=== PATIENT | female | born 1945 | race Caucasian/White ===

== ENCOUNTER 2016-09-15 21:21 | Emergency (ER) | payer OTHER, MEDICARE ==
[~2016-09-15] VITALS: Ht 162.6 cm; Wt 81.8 kg
[~2016-09-15 21:21] MED LIST: AMT25T PO; BUPR150T12 PO; CITA20TA11 PO; CYA1000I IM; GABA-502 PO; KLO5T PO; LEVO200T6 PO; OMEP20TA86 PO; ROPI0.5T PO; TRAZ-115 PO
[2016-09-15 21:27] VITALS: BP 160/95; PULSE 80; RESP 16; O2SAT 98
[2016-09-15 22:52] LABS: BASOPHILS % (AUTO) 0.5 % (0-3); EOSINOPHILS % (AUTO) 2.1 % (0-5); MONOCYTES % (AUTO) 9.1 % (4-12); Mean Corpuscular Hemoglobin 28.8 pg (27.0-35.0); Mean Corpuscular Volume 91.6 fL (81-100); NEUTROPHILS % (AUTO) 49.5 % (40-74); Platelet Count 149 bil/L (150-400)
[2016-09-15 23:15] LABS: TROPONIN T 0.01 ug/L (0.0-0.011)
[2016-09-15 23:26] VITALS: BP 125/59; PULSE 74; RESP 14; O2SAT 98
[2016-09-15 23:26] LABS: Magnesium 1.9 mg/dL (1.6-2.6)
--- NOTE | 2016-09-16 00:51 | ED.REPORT ---
HPI-Chest Pain 40 and Over Date of Service Sep 16, 2016 ED Provider: Chuck Cuello MD Patient is a 71 year old female with a hx of HTN who reports to the ED due to episodes of irregular heart beat for four days. She reports it feels like her heart, "stops a beat," followed by stomach pain, left shoulder pain, and a headache. Symptoms most recently occurred two nights ago and lasted for two hours. There was no sustained tachycardia, only this irregularity occurring as frequently as once every 10 beats. She is not currently experiencing any pain. Nursing Notes Stated Complaint: HEART Chief Complaint: Dysrhythmia/Cardiac Nursing Notes Reviewed: Yes Allergies: Coded Allergies: No Known Allergies (Unverified Allergy, Unknown, 05/13/15) Scheduled Amitriptyline (Amitriptyline) 25 Mg Tab 25 MG PO HS Bupropion ER (Bupropion ER) 150 Mg Tablet.er 150 MG PO BID Citalopram (Citalopram) 20 Mg Tablet 20 MG PO DAILY Cyanocobalamin (Cyanocobalamin Injection) 1,000 Mcg/1 Ml Vial 1,000 MCG IM Monthly Gabapentin (Gabapentin) 300 Mg Capsule 300 MG PO DAILY Levothyroxine (Levothyroxine) 200 Mcg Tablet 200 MCG PO DAILY Omeprazole (Omeprazole) 20 Mg Tablet.dr 20 MG PO DAILY Ropinirole (Requip) 0.5 Mg Tablet 0.5 MG PO HS Scheduled PRN Clonazepam (Clonazepam) 0.5 Mg Tablet 0.5 MG PO QEVENING PRN PRN PRN For Anxiety Trazodone (Trazodone) 50 Mg Tablet 50 MG PO HS PRN PRN PRN General Time Seen by MD: 00:36 Chief Complaint Other (dysrhythmia ) Hx Obtained From: Patient Arrived By: Walk-in Sudden in Onset?: Yes Onset Occurred: 4 days ago Symptom Duration: Since onset Location: : Shoulder left Severity: Current: No pain currently Recent Healthcare: No recent doctor visit, No recent hospitalization Similar Sx Previous: No Past Medical History Past Medical History Anxiety Depression Reports: Hypertension Past Surgical History colon surgery Family History noncontributory Smoking History Never Smoker Social History Drug Use: Denies drug use Other Social History: Local resident Ambulatory Status Independent Review of Systems Review of Systems Note: dysrhythmia Musculoskeletal: Reports: Joint pain (left shoulder) Neurologic: Reports: Headache Complete sys rev & neg: except as marked. Physical Exam Initial Vital Signs Vital Signs (First) Date Time Temp Pulse Resp B/P Pulse Ox O2 Delivery O2 Flow Rate FiO2 09/15/16 21:27 36.4 80 16 160/95 98 Room Air Initial VS: Reviewed, Vital signs abnormal Head / Eyes: Atraumatic, Normocephalic, PERRL ENT: Mucous membranes moist, Conjunctiva normal, No scleral icterus Neck: Supple, Non-tender, Full range of motion Back: No CVA tenderness Lymphatic: No lymphadenopathy Extremities: Vascular intact, Neuro intact, No swelling, No tenderness Skin: Warm, Dry, No cyanosis Neurologic: Alert, Oriented, Nonfocal Psychiatric: Mood/affect normal, Behavior normal, Normal thought content General/Constitutional: Awake, Alert, No acute distress, Well appearing, Well developed, Well hydrated, Well nourished, Cooperative, Not toxic appearing Respiratory / Chest: Atraumatic, Breath sounds NL, Breath sounds = bilat, No respiratory distress, No rales, No rhonchi, No wheezing, No retractions Cardiovascular: Heart rate NL, Heart sounds NL, No gallop, No murmurs, No rubs occasional premature beat no edema Abdomen: Atraumatic, Soft, Non-tender, No guarding, No rebound, BS normoactive Interpretation & Diagnostics Lab Results Interpretation Result Diagram: 09/15/16221909/15/162219 Test 09/15/16 22:20 09/16/16 00:37 White Blood Count 5.7th/mm3 (3.8-10.1) Red Blood Count 3.79mil/mm3 (3.90-5.20) Hemoglobin 10.9g/dL (12.0-15.6) Hematocrit 34.7% (35.0-46.0) Mean Corpuscular Volume 91.6fL (81-100) Mean Corpuscular Hemoglobin 28.8pg (27.0-35.0) Mean Corpuscular Hemoglobin Concent 31.4% (32.0-37.0) Red Cell Distribution Width 12.6% (12.3-15.4) Platelet Count 149bil/L (150-400) Neutrophils (%) (Auto) 49.5% (40-74) Lymphocytes (%) (Auto) 38.6% (14-46) Monocytes (%) (Auto) 9.1% (4-12) Eosinophils (%) (Auto) 2.1% (0-5) Basophils (%) (Auto) 0.5% (0-3) Sodium Level 136mEq/L (134-144) Potassium Level 3.8mEq/L (3.5-5.2) Chloride Level 97mEq/L (97-108) Carbon Dioxide Level 26mmol/L (18-29) Blood Urea Nitrogen 25mg/dL (8-27) Creatinine 1.15mg/dL (0.57-1.00) Estimat Glomerular Filtration Rate 67mL/min (>59) Glucose Level 99mg/dL (60-99) Calcium Level 8.7mg/dL (8.5-10.1) Magnesium Level 1.9mg/dL (1.6-2.6) Total Bilirubin 0.3mg/dL (0.0-1.2) Aspartate Amino Transf (AST/SGOT) 26U/L (0-50) Alanine Aminotransferase (ALT/SGPT) 20U/L (0-32) Alkaline Phosphatase 129U/L (25-165) Troponin T 0.010ug/L (0.0-0.011) Total Protein 7.2g/dL (6.4-8.4) Albumin 3.9g/dL (3.4-5.0) Hold Urine Received (Received) Lab values outside NL range: no clinical significance. ECG Interpretation ECG Interpretation: ventricular premature complex probable left ventricular hypertrophy Time: 10:01 Interpreted by: ED physician Normal ECG Interpretation: Normal sinus rhythm (77) Re-Eval/Medical Decision Med Decision/Clinical Course 71-year-old female with history consistent with PVCs and unifocal PVCs noted on her monitoring strip consistent with her symptoms. No electrolyte abnormalities were noted. No ischemic changes were noted on her EKG. She has no history of use of stimulants. Patient will be discharged home to follow-up with her primary doctor Time of Eval: 01:03 Patient Status: Condition unchanged Re-Evaluation/Progress Note: Pt rechecked. Informed of diagnosis of premature ventricular contraction and plan of treatment. Pt understands and agrees with plan. Return to the ER warnings given. Counseled Regarding: Diagnosis, Lab results, Need for follow-up, When/why to return to ED Discharge & Departure Primary Impression: Premature ventricular contraction Disposition: Home Discharge Condition All VS Reviewed: Yes Condition: Improved Patient Instructions: Palpitations (ED) Additional Instructions: The irregular heartbeat that you feel is a PVC, a premature ventricular contraction. It is an early beat that does not pump much because it is early, and is followed by a normal beat that pumps a lot and is very noticeable. This is not dangerous. Stress, sleeplessness, caffeine and other stimulants, cold medications, all may make it more frequent. But sometimes it happens for no known reason. Contact your regular provider if it persists. Return to the emergency room if you have sustained irregularity, chest pain or shortness of breath. Referrals: Leny Lemus (PCP) Scribe Attestation Portions of this note were transcribed by Juwan Calle. I, Dr. Cuello personally performed the history, physical exam and medical decision-making; I reviewed and confirmed the accuracy of the information in the transcribed note. Signed by: Renu Sánchez, 09/16/16 0104 copies to: Leny Lemus Howard L MD Sep 16, 2016 00:51 JUWAN CALLE Sep 16, 2016 01:05
[2016-09-16 01:29] VITALS: BP 115/62; PULSE 67; RESP 13; O2SAT 95
--- NOTE | 2016-09-16 08:20 | DRSVH ---
PROCEDURE: X-RAY CHEST ONE VIEW, PORTABLE ([id number]) INDICATIONS: 71 year-old female with irregular heart rate. TECHNIQUE: One view of the chest was acquired. COMPARISON: [facility], CR, XR CHEST 1VW (PORTABLE), 03/06/2016, 13:58. FINDINGS: Surgical changes and devices: Epigastric abdominal surgical clips are present, as well as cervical sp ine anterior fixation hardware. Lungs and pleura: No pleural effusions or pneumothorax. Lungs are clear. Mediastinum: Mediastinal contours appear normal. Heart size is normal. Bones and chest wall: No suspicious bony lesions. Overlying soft tissues appear unremarkable. IMPRESSION: No acute cardiopulmonary disease. Dictated by: Jairon Marti M.D. on 09/16/2016 at 8:18 Approved by: Jairon Marti M.D. on 09/16/2016 at 8:19
== END 2016-09-16 01:15 | disposition home or self-care (01) ==
LOC: SED 21:21
DX: I49.3 Ventricular premature depolarization (principal); M25.512 Pain in left shoulder; R51 Headache; R10.9 Unspecified abdominal pain; I10 Essential (primary) hypertension